=== PATIENT | male | born 1975 | race Caucasian/White ===

== ENCOUNTER 2024-05-21 15:43 | Emergency (ER) | payer OTHER, SELFPAY ==
--- NOTE | ~2024-05-21 | CT_ITS ---
EXAMINATION: CTA chest DATE: 05/21/2024 19:22 INDICATION: Left chest pain. TECHNIQUE: Computed tomography angiography (CTA) of the chest was performed with 100 mL Omnipaque-350 intravenous contrast timed to evaluate the pulmonary arteries. Coronal maximum intensity projection 3D-reconstructions were created by the technologist. Automated exposure control and iterative reconst ruction technique were employed. The dose-length product was 367.59 mGy-cm. COMPARISON: None. FINDINGS: There is no pneumonia or pleural effusion. There is a 9 mm nodule in right thyroid lobe, li caio not clinically significant. The heart size is normal. No pericardial effusion. There is no pulmo nary embolus. There is mild thoracic spondylosis. IMPRESSION: 1. No pulmonary embolus. Reviewed, dictated and finalized at location E. IMPRESSION: 1. No pulmonary embolus.
--- NOTE | ~2024-05-21 | XR_ITS ---
EXAMINATION: XR chest 2V DATE: 05/21/2024 16:02 INDICATION: Left chest pain. TECHNIQUE: Frontal and lateral views of the chest were obtained. COMPARISON: None. FINDINGS: There is no pneumonia, pleural effusion, or pneumothorax. The heart size is normal. IMPRESSION: 1. No acute cardiopulmonary disease. Reviewed, dictated and finalized at location E.
--- NOTE | 2024-05-21 15:44 | ECG_ITS ---
Test Date: 2024-05-21 15:51:01 Measurements Intervals [place] Rate: 65 P: 75 NH: 151 QRS: 90 QRSD: 97 T: 55 QT: 387 QTc: 402 Interpretive Statements SINUS RHYTHM NORMAL ELECTROCARDIOGRAM No previous ECG available for comparison Electronically Signed On 05-22-2024 07:19:49 CDT by Servando Mejia M.D.
[2024-05-21 15:52] VITALS: BP 130/87; PULSE 72; RESP 16; TEMP 36.3; O2SAT 100
[2024-05-21 16:06] LABS: Basophils Absolute Auto 0.1 K/mm3 (0.0-0.1); Basophils Percent Auto 0.7 % (0.2-1.2); Eosinophils Absolute Auto 0.2 K/mm3 (0-0.3); Eosinophils Percent Auto 1.8 % (0-4.4); Hematocrit 48.2 % (42.0-52.0); Hemoglobin 16.2 g/dL (14.0-18.0); Immature Granulocyte Absolute 0.03 K/mm3 (0.00-0.031); Immature Granulocyte Percent A 0.4 % (0-0.5); Lymphocytes Absolute Auto 1.65 K/mm3 (0.9-3.2); Lymphocytes Percent Auto 19.7 % (18.3-44.2); Mean Corpuscular HGB Conc 33.6 g/dl (32-36); Mean Corpuscular Hemoglobin 29.9 pg (26-34); Mean Corpuscular Volume 88.9 fl (80-100); Mean Platelet Volume 9.8 fl (7.4-10.4); Monocytes Absolute Auto 0.5 K/mm3 (0.1-0.6); Monocytes Percent Auto 5.5 % (2.6-8.5); Neutrophils Percent Auto 71.9 % (45.5-73.1); Platelet Count Result 261 k/mm3 (150-375); Red Blood Count 5.42 M/mm3 (4.6-6.20); Red Cell Distribution Width 13.2 % (11.5-14.5); White Blood Count 8.4 K/mm3 (4.5-10.0)
[2024-05-21 16:16] LABS: Alanine Aminotransferase 29 U/L (6-50); Alkaline Phosphatase 53 U/L (38-126); Anion Gap 9 mmol/L (4-12); Aspartate Amino Transferase 27 U/L (17-59); Bilirubin,Total 0.8 mg/dL (0.2-1.3); Blood Urea Nitrogen 19 mg/dL (9-20); Calcium 9.5 mg/dL (8.4-10.2); Carbon Dioxide 27 mmol/L (22-30); Chloride 100 mmol/L (98-107); Estimated Glomerular Filt Rate > 60; Glucose 383 mg/dL (65-110); Lipase 57 U/L (23-300); Potassium 5.1 mmol/L (3.4-5.0); Sodium 136 mmol/L (137-145)
[2024-05-21 16:18] LABS: INR 0.9; Prothrombin Time 12.9 Seconds (11.1-14.7)
[2024-05-21 16:27] LABS: Troponin I < 0.012 ng/mL (0.000-0.034)
[2024-05-21 18:28] VITALS: O2SAT 99
[2024-05-21 18:42] VITALS: BP 123/73; PULSE 54; RESP 15; O2SAT 99
--- NOTE | 2024-05-21 18:45 | ECG_ITS ---
Test Date: 2024-05-21 18:49:41 Measurements Intervals [place] Rate: 54 P: 75 MT: 182 QRS: 77 QRSD: 104 T: 40 QT: 418 QTc: 397 Interpretive Statements SINUS BRADYCARDIA OTHERWISE NORMAL ECG Compared to ECG 05/21/2024 15:51:01 NO SIGNIFICANT CHANGE Electronically Signed On 05-22-2024 07:25:18 CDT by Servando Mejia M.D.
[2024-05-21] MEDS: ASPIRIN 81 MG CHEWABLE TABLET 324 MG PO (18:46)
[2024-05-21] MEDS: Please add drug allergy info to patient profile. 1 EACH XX (18:49)
[2024-05-21] MEDS: ONDANSETRON INJ 4 MG/2 ML VIAL IV PUSH (19:01)
[2024-05-21] MEDS: SODIUM CHLORIDE 0.9% IV 1,000 ML 999 ML IV CONT (19:01)
--- NOTE | 2024-05-21 19:01 | ED.CHESTPAIN ---
HPI - Chest Pain General Chief Complaint: Chest Pain Stated Complaint: chest pain Time Seen by Provider: 05/21/24 17:50 Source: patient Mode of arrival: ambulatory Limitations: no limitations History of Present Illness HPI narrative: This is a 48-year-old male who presents to the ED for chief complaint of left-sided chest pain ongoing for the past week. Patient reports that the pain stays in the left side of the chest and does not radiate. It is not associated with exertion. Seems to be worsen with certain positions, specifically sitting forward or up. He does describe associated left-sided numbness and tingling throughout the entire arm. States that sometimes this radiates superiorly into the neck. Denies back pain. Denies shortness of breath, nausea, vomiting, syncope, sweats. There is no exertional component to the pain. Patient works a heavy manual labor job but has not noticed any specific injury or worsening of pain at work. Does use tobacco. History of type 1 diabetes. No heart history. Related Data Allergies Allergy/AdvReac Type Severity Reaction Status Date / Time Penicillins Allergy Unknown Verified 05/21/24 18:45 Review of Systems Review of Systems: All systems as dictated in HPI Exam Narrative: GENERAL: Well-appearing, well-nourished, and in no acute distress. HEAD: Normocephalic, atraumatic. EYES: PERRLA and EOMI. ENT: Nares clear, no rhinorrhea or epistaxis. Mucous membranes moist. Oropharynx without tonsillar hypertrophy exudate or other lesions. NECK: Supple. No adenopathy or masses. CHEST: Pain in the left side of the chest is reproduced with sitting forward in the bed. Minimal tenderness. No respiratory distress. Clear to auscultation. No wheezes rales or rhonchi HEART: Regular rate and rhythm. No murmur heard. Normal peripheral pulses. ABDOMEN: Soft, nontender, nondistended, normal active bowel sounds. MSK: Normal range of motion. No edema. SKIN: Warm, dry, no rash. NEURO: Alert and oriented x4. No focal deficits. PSYCH: Normal mood and affect. Course Vital Signs Vital signs: Vital Signs Temperature 97.3 F L 05/21/24 15:52 Pulse Rate 72 05/21/24 15:52 Respiratory Rate 16 05/21/24 15:52 Blood Pressure 130/87 05/21/24 15:52 Pulse Oximetry 100 05/21/24 15:52 Oxygen Delivery Room Air 05/21/24 15:52 Temperature 97.3 F L 05/21/24 15:52 Pulse Rate 57 L 05/21/24 20:09 Respiratory Rate 17 05/21/24 20:09 Blood Pressure 121/81 05/21/24 20:09 Pulse Oximetry 100 05/21/24 20:09 Oxygen Delivery Room Air 05/21/24 18:28 MDM - Chest Pain MDM Narrative Medical decision making narrative: This is a 48-year-old male who presents to the ED for chief of chest pain for the past week. Vitals are normal. Exam shows reproducible chest pain to the left chest wall, with sitting up in bed. EKG shows normal sinus rhythm. serial troponin serial troponins are negative. lab work remarkable only for elevated glucose, he is type 1 diabetic and has not yet had his insulin today. Chest x-ray is normal. He is describing continued left arm numbness/ tingling so chest CTA was ordered. Chest CTA is without acute findings. He is well-appearing and has improved with fluids, Zofran and morphine. Heart score is 2. symptoms consistent with MSK or atypical chest pain Pt will be discharged in stable condition. Return precautions given and supportive measures discussed. Pt is understanding and agreeable with plan for discharge and follow-up with PCP. Differential Diagnosis Differential diagnosis: Likely pneumothorax, stable angina, unstable angina pectoris, atypical chest pain, st elevation myocardial infarction, costochondritis and chest pain Lab Data 05/21/24 15:58 05/21/24 15:58 Labs: Lab Results 05/21/24 05/21/24 Range/Units 15:58 18:43 WBC 8.4 (4.5-10.0) K/mm3 RBC 5.42 (4.6-6.20) M/mm3 Hgb 16.2
[2024-05-21] MEDS: MORPHINE SULFATE (*CRX) 4 MG/ML INJ IV PUSH (19:02)
[2024-05-21 19:12] LABS: Troponin I < 0.012 ng/mL (0.000-0.034)
--- NOTE | 2024-05-21 19:14 | PC.NURSE ---
Report received from [facility]. Assumed care of patient at this time.
[2024-05-21 20:09] VITALS: BP 121/81; PULSE 57; RESP 17; O2SAT 100
== END 2024-05-21 20:12 | disposition home or self-care (01) ==
PROVIDERS: Emergency Medicine; Emergency Provider Physician Assistant
DX: R07.89 Other chest pain (principal); E10.8 Type 1 diabetes mellitus with unspecified complications
CPT/HCPCS: 36415; 71046; 71275; 80053; 83690; 84484; 85025; 85610; 85730; 93005; 96361; 96374; 96375; 99284; A9270; J2270; J2405; J7030; Q9967